=== PATIENT | male | born 1940 | race Two or more races ===

== ENCOUNTER 2017-07-14 07:52 | Emergency (ER) | payer OTHER ==
[2017-07-14 09:01] VITALS: BP 154/74
== END 2017-07-14 09:01 | disposition home or self-care (01) ==
LOC: ED 07:52
DX: M79.644 Pain in right finger(s) (principal)
CPT/HCPCS: J0696

== ENCOUNTER 2017-07-16 10:44 | Emergency (ER) | payer OTHER ==
[~2017-07-16] VITALS: Ht 162.6 cm; Wt 78.0 kg
[2017-07-16 13:26] VITALS: BP 150/84
== END 2017-07-16 13:26 | disposition home or self-care (01) ==
LOC: ED 10:44
DX: L03.011 Cellulitis of right finger (principal); I10 Essential (primary) hypertension
CPT/HCPCS: J2001